=== PATIENT | female | born 1970 | race Caucasian/White ===

== ENCOUNTER 2020-01-15 12:20 | Outpatient (CLI) | payer SELFPAY ==
--- NOTE | 2020-01-19 13:09 | ONC FU_ITS ---
Dr. Greenfield Patient Follow-Up Note Patient: Bobbi Fairbanks Unit #: [id number]: 1970 Dicatated By: Arturo Greenfield M.D.Date of Visit:Jan 15, 2020 Onc Med Follow-up/Prog Note Chief Complaint: Breast cancer. History of Present Illness: This is a 49 year-old woman with invasive lobular carcinoma of the left breast occurring in association with lobular carcinoma in situ, initially diagnosed in December 2015. Her disease was stage IA (T1a, N0, M0), ER/AL positive and HER-2/jacoby negative. She has been in excellent health. She had started getting screening mammograms at age 41, though she has no particular risk factors for breast cancer. Her screening mammogram from 01/06/2016 showed dense breast tissue bilaterally with a partially obscured nodular density in the upper mid left breast retroareolar area. It appeared to have increased in size compared to study from 11/20/2013, though it was not evident on the study from 12/03/2014, suggesting the possibility of recurrent cyst. Further evaluation with ultrasound was recommended. It apparently showed that the mass was getting larger, though reportedly it had a benign appearance. On 01/29/2016 she underwent ultrasound-guided biopsy which revealed 2 nodules which clinically were consistent with fibroadenomas. Pathology described two davidson-white, firm nodules measuring 0.8 cm and 1.7 cm. Microscopically these were consistent with benign fibroadenomas. However, the adjacent normal appearing breast tissue showed a 3 mm focus of invasive lobular carcinoma. It was associated with an area of lobular carcinoma in situ measuring 9 mm. Invasive carcinoma was noted to extend within 3 mm of the naris margin and there was lobular carcinoma in situ extending to within less than 1 mm of the nearest margin. The breast prognostic profile showed the ERA positive at 90% with moderate intensity staining in the PRA positive at 93% with strong intensity staining. It was negative for overexpression of HER-2/jacoby, 0+ by IHC, amplification ratio 1.2 by FISH with 1.9 HER-2 copies/cell. The Ki-67 was low at 3%. I had seen her initially on 03/04/2016. Given the very small component of invasive cancer, I recommended that she get a second opinion with a breast cancer specialist at [facility]. She had further evaluation with breast MRI followed by 2 subsequent needle biopsies, both of which were benign. She underwent re-excision lumpectomy and MammoSite radiation, which she completed in May 2016. She then started adjuvant hormonal therapy with tamoxifen. During subsequent follow-up she has tolerated the tamoxifen well, thus far with no evidence of recurrence of the breast cancer. Her medical history is otherwise unremarkable. She has no other medical illnesses or surgeries. She is a nonsmoker. She is seen for a scheduled visit. She has been feeling good generally. She has good energy and activity tolerance. ECOG score is 0. Her appetite is good. She has not had fever or night sweats. She has had only mild hot flashes. She has some sinus drainage and a little bit of cough. She does not complain of shortness of breath or chest pain. She has no GI/ complaints other than occasional acid reflux. She has no significant joint or bone pain. She has no focal neurologic symptoms. Medications: Tamoxifen Citrate 1 Tablet Oral daily Allergies: Sulfa Review of Systems: Constitutional - Her energy level is good and she is able to do all her normal activities. Appetite is good and weight is up 2 pounds from last years visit. No fever or chills. She still has occasional hot flashes. No night sweats. ECOG score is 0, ENMT - She has some sinus drainage. No mouth sores. No sore throat or difficulty swallowing, Hematologic/Lymphatic - She bruises easily, Respiratory - No shortness of breath. She has a slight cough. No pleuritic pain or hemoptysis, Cardiovascular - No angina pain. No palpitations, Gastrointestinal - No nausea or vomiting. She occasionally has acid reflux. No diarrhea or constipation. No blood in the stool or black stools, Genitourinary (F) - No dysuria or hematuria. No urinary frequency. No urgency or incontinence, Musculoskeletal - No joint or bone pain, Integumentary - No skin complications, Neurologic - No headache or dizziness. No numbness/paresthesias or other focal neurologic symptoms, Psychiatric - No anxiety or depression. No insomnia. Vital Signs: Performed on Jan 15, 2020 13:10 Height - 63.50 in Weight - 134.2 lbs (HIGH) BSA - 1.64 sq.m BMI - 23.40 Temperature - 97.6 F (LOW) Pulse - 64 /min Respiration - 18 /min BP - 138/72 mm(hg) O2 Sat - 100 % Pain - 0 Physical Examination: Constitutional - She looks good generally, Eyes - Sclerae nonicteric. Conjunctivae clear, ENMT - No lesions noted in the oral cavity, Hematologic/Lymphatic - No cervical, clavicular, or axillary adenopathy, Respiratory - Lungs are clear with good air movement bilaterally, Cardiovascular - Heart rhythm is regular. There is no murmur, gallop, or rub noted, Abdomen - Soft. Liver and spleen are not enlarged. There is no abdominal mass or ascites noted and there is no inguinal adenopathy, Extremities - No edema, Neurologic - No focal neurologic deficits noted. Lab/Imaging: Test performed on Jul 31, 2019 09:50 Sodium 143 mmol/L Potassium 3.9 mmol/L Chloride 105 mmol/L CO2 26 mmol/L Anion Gap 15.9 BUN 26 mg/dL Creatinine 0.9 mg/dL Cr Clearance (Est) 71.1100 mL/min eGFR 66.3 mL/min Glucose 99 mg/dl Calcium 9.3 mg/dL Protein, Total 7.5 g/dL Albumin 5.0 g/dL Globulin 2.5 gm/dL Bilirubin, Total 0.3 mg/dL ALT (SGPT) 9 U/L AST (SGOT) 15 U/L Alkaline Phosphatase 49 U/L WBC 7.2 /cmm RBC 4.23 10 6/cmm HGB 13.4 g/dl HCT 39.2 % MCV 92.5 /cmm MCH 31.7 pg MCHC 34.2 g/dl RDW 12.4 % Platelet Count 201 10 3/cmm MPV 8.0 fl Neutrophils 4.8 10 3/cmm Lymphocytes 1.7 10 3/cmm Monocytes 0.4 10 3/cmm Eosinophils 0.3 10 3/cmm Basophils 0.1 10 3/cmm Neutrophil % 66.1 % Lymphocyte % 23.6 % Monocyte % 5.8 % Eosinophil % 3.7 % Basophils % 0.8 % Impression: 1. Patient with invasive lobular carcinoma of the left breast, stage IA (T1a, N0, M0), ER/AL positive and HER-2/jacoby negative. It was discovered incidentally in an excisional biopsy for 2 relatively small fibroadenomas. The invasive lesion measured only 3 mm, but it occurred in association with a 9 mm focus of lobular carcinoma in situ. She underwent excisional biopsy on 01/29/2016 with the nearest margin of invasive cancer measured at 3 mm and with lobular carcinoma in situ extending to within 1 mm of the nearest margin. 2. She had further treatment at [facility] which included breast MRI and 2 additional needle biopsies, both of which were benign. She then underwent re-excision lumpectomy and MammoSite radiation in May 2016. 3. She has been on adjuvant hormonal therapy with tamoxifen. She has been tolerating the tamoxifen with no significant adverse effects. Overall, she has been doing very well clinically with no evidence of recurrence of the breast cancer. Plan: She continues adjuvant hormonal therapy with tamoxifen 20 mg daily. She will be scheduled for a followup visit in one year. Signed By: Arturo Greenfield M.D. <<Signature on File>>
== END 2020-01-15 12:21 | disposition home or self-care (01) ==
LOC: ONCMED 12:23
PROVIDERS: Family Provider Family Medicine; PCP Family Medicine; Visit Provider Internal Medicine Medical Oncology
DX: C50.112 Malignant neoplasm of central portion of left female breast (principal); Z17.0 Estrogen receptor positive status [ER+]; Z79.810 Long term (current) use of selective estrogen receptor modulators (SERMs); Z92.3 Personal history of irradiation
CPT/HCPCS: 99214

== ENCOUNTER 2021-01-15 12:42 | Outpatient (CLI) | payer OTHER, SELFPAY ==
--- NOTE | 2021-01-15 13:53 | ONC FU_ITS ---
Dr. Greenfield Patient Follow-Up Note Patient: Bobbi Fairbanks Unit #: [id number]: 1970 Dicatated By: Arturo Greenfield M.D.Date of Visit:Jan 15, 2021 Onc Med Follow-up/Prog Note Chief Complaint: Breast cancer. 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 Her disease was stage IA (T1a, N0, M0), ER/OR positive and HER-2/jacoby negative. She had started getting screening mammograms at age 41, though she has no particular risk factors for breast cancer. Her screening mammogram from 01/06/2016 showed dense breast tissue bilaterally with a partially obscured nodular density in the upper mid left breast retroareolar area. It appeared to have increased in size compared to study from 11/20/2013, though it was not evident on the study from 12/03/2014, suggesting the possibility of recurrent cyst. Further evaluation with ultrasound was recommended. It apparently showed that the mass was getting larger, though reportedly it had a benign appearance. On 01/29/2016 she underwent ultrasound-guided biopsy which revealed 2 nodules which clinically were consistent with fibroadenomas. Pathology described two davidson-white, firm nodules measuring 0.8 cm and 1.7 cm. Microscopically these were consistent with benign fibroadenomas. However, the adjacent normal appearing breast tissue showed a 3 mm focus of invasive lobular carcinoma. It was associated with an area of lobular carcinoma in situ measuring 9 mm. Invasive carcinoma was noted to extend within 3 mm of the naris margin and there was lobular carcinoma in situ extending to within less than 1 mm of the nearest margin. The breast prognostic profile showed the ERA positive at 90% with moderate intensity staining in the PRA positive at 93% with strong intensity staining. It was negative for overexpression of HER-2/jacoby, 0+ by IHC, amplification ratio 1.2 by FISH with 1.9 HER-2 copies/cell. The Ki-67 was low at 3%. I had seen her initially on 03/04/2016. Given the very small component of invasive cancer, I recommended that she get a second opinion with a breast cancer specialist at [facility]. She had further evaluation with breast MRI followed by 2 subsequent needle biopsies, both of which were benign. She underwent re-excision lumpectomy and MammoSite radiation, which she completed in May 2016. She then started adjuvant hormonal therapy with tamoxifen. During subsequent follow-up she has tolerated the tamoxifen well, thus far with no evidence of recurrence of the breast cancer. Her medical history is otherwise unremarkable. She has no other medical illnesses or surgeries. She is a nonsmoker. She is seen for a scheduled visit. She has been feeling good generally. She has good energy and activity tolerance. Her appetite has been good. She has not had fever or night sweats. She does have some hot flashes. She has some allergy related sinus symptoms and she sometimes has cough with it. She does not complain of shortness of breath or chest pain. She has no GI or complaints. Her last menstrual period was in July. She has a little bit of aches and pains here and there. She does not complain of headache or dizziness and she has no focal neurologic symptoms. Medications: Tamoxifen Citrate 1 Tablet Oral daily Allergies: Sulfa Vital Signs: Performed on Jan 15, 2021 13:26 Height - 63.50 in Weight - 132.6 lbs (LOW) BSA - 1.63 sq.m BMI - 23.12 Temperature - 98.3 F (LOW) Pulse - 73 /min Respiration - 18 /min BP - 136/77 mm(hg) O2 Sat - 98 % Pain - 0 Fatigue - 0 Physical Examination: Constitutional - She looks good generally, Eyes - Sclerae nonicteric. Conjunctivae clear, ENMT - No lesions noted in the oral cavity, Hematologic/Lymphatic - No cervical or clavicular adenopathy, Respiratory - Lungs are clear with good air movement bilaterally, Cardiovascular - Heart rhythm is regular. There is no murmur, gallop, or rub noted, Breasts - There are no breast masses noted. There is no axillary adenopathy, Abdomen - Soft. Liver and spleen are not enlarged. There is no abdominal mass or ascites noted and there is no inguinal adenopathy, Extremities - No edema, Neurologic - No focal neurologic deficits noted. Problem List: 1. Invasive lobular carcinoma of the left breast, stage IA (T1a, N0, M0), ER/OR positive and HER-2/jacoby negative. It was discovered incidentally in an excisional biopsy for 2 relatively small fibroadenomas. The invasive lesion measured only 3 mm, but it occurred in association with a 9 mm focus of lobular carcinoma in situ. She underwent excisional biopsy on 01/29/2016 with the nearest margin of invasive cancer measured at 3 mm and with lobular carcinoma in situ extending to within 1 mm of the nearest margin. 2. She had further treatment at [facility] which included breast MRI and 2 additional needle biopsies, both of which were benign. She then underwent re-excision lumpectomy and MammoSite radiation in May 2016. Problems Addressed with this Encounter and Plan: Patient with invasive lobular carcinoma of the left breast, stage IA (T1a, N0, M0), ER/OR positive and HER-2/jacoby negative. It was discovered incidentally in an excisional biopsy for 2 relatively small fibroadenomas. The invasive lesion measured only 3 mm, but it occurred in association with a 9 mm focus of lobular carcinoma in situ. She underwent excisional biopsy on 01/29/2016 with the nearest margin of invasive cancer measured at 3 mm and with lobular carcinoma in situ extending to within 1 mm of the nearest margin. She had further treatment at [facility] which included breast MRI and 2 additional needle biopsies, both of which were benign. She then underwent re-excision lumpectomy and MammoSite radiation in May 2016. She then began adjuvant hormonal therapy with tamoxifen 20 mg daily. During follow-up she has been doing very well clinically. She has had no significant side effects with the tamoxifen. Thus far there has been no evidence of recurrence of the breast cancer. She is advised to continue the tamoxifen until May, at which point she will have completed 5 years of treatment. Beyond that, she should continue her yearly diagnostic mammogram surveillance, and she is advised to also have a yearly breast exam, either with Dr. Camarillo or with her drum loader and unloader. I will plan to see her here again only as needed. Signed By: Arturo Greenfield M.D. <<Signature on File>>
== END 2021-01-15 12:43 | disposition home or self-care (01) ==
LOC: ONCMED 12:44
PROVIDERS: Family Provider Family Medicine; PCP Family Medicine; Visit Provider Internal Medicine Medical Oncology
DX: C50.812 Malignant neoplasm of overlapping sites of left female breast (principal); Z17.0 Estrogen receptor positive status [ER+]; Z79.811 Long term (current) use of aromatase inhibitors
CPT/HCPCS: 99214